=== PATIENT | female | born 1995 | race Two or more races ===

== ENCOUNTER 2018-02-04 23:37 | Emergency (ER) | payer MEDICAID ==
[~2018-02-04] VITALS: Ht 162.6 cm; Wt 81.6 kg
[2018-02-04] MEDS ORDERED: NKM (23:47)
[2018-02-04 23:50] VITALS: BP 129/75
[2018-02-05] MEDS ORDERED: Tylenol #3 tab (300mg/30mg) PO ONE (00:15)
[2018-02-05] MEDS ORDERED: CYCLOBENZAPRINE10 MG ORAL (02:26)
[2018-02-05] MEDS ORDERED: TYLENOL EXTRA500 MG ORAL (02:26)
[2018-02-05 02:35] VITALS: BP 129/75
--- NOTE | 2018-02-05 02:46 | Emergency Room Report ---
History of Present Illness General Chief Complaint: Multiple Trauma/Fall Source: Patient Present Illness HPI 22-year-old female presents ED for evaluation. Patient states she had a mechanical trip and fall tonight. Complaining of left knee pain and neck pain. Denies LOC. Denies any headache. Denies any other injuries. Pain is throbbing, 8 out of 10, nonradiating. States pain but is able to walk. No other aggravating or relieving factors. Denies any other associated symptoms Allergies: Coded Allergies: No Known Allergies (Unverified , 02/04/18) Patient History Past Medical History: none Past Surgical History: none Pertinent Family History: none Social History: Denies: smoking, alcohol use, drug use Last Menstrual Period: Nov Now: No Immunizations: UTD Reviewed Nursing Documentation: PMH: Agreed, PSxH: Agreed Nursing Documentation-PMH Past Medical History: No Stated History Review of Systems All Other Systems: negative except mentioned in HPI Physical Exam Vital Signs Date Time Temp Pulse Resp B/P (MAP) Pulse Ox O2 Delivery O2 Flow Rate FiO2 02/04/18 23:41 98.9 96 18 129/75 97 Room Air 99.0 Sp02 EP Interpretation: reviewed, normal General Appearance: no apparent distress, alert, GCS 15, non-toxic Head: normocephalic, atraumatic Eyes: bilateral eye normal inspection, bilateral eye PERRL ENT: hearing grossly normal, normal pharynx, no angioedema, normal voice Neck: full range of motion, supple/symm/no masses, tender lateral, tender midline Respiratory: chest non-tender, lungs clear, normal breath sounds, speaking full sentences Cardiovascular #1: regular rate, rhythm, no edema Cardiovascular #2: 2+ carotid (R), 2+ carotid (L), 2+ radial (R), 2+ radial (L) , 2+ dorsalis pedis (R), 2+ dorsalis pedis (L) Gastrointestinal: normal bowel sounds, non tender, soft, non-distended, no guarding, no rebound Rectal: deferred Genitourinary: normal inspection, no CVA tenderness Musculoskeletal: back normal, gait/station normal, normal range of motion, tender - Left knee Neurologic: alert, oriented x3, responsive, motor strength/tone normal, sensory intact, speech normal Psychiatric: judgement/insight normal, memory normal, mood/affect normal, no suicidal/homicidal ideation Reflexes: 3+ bicep (R), 3+ bicep (L), 3+ tricep (R), 3+ tricep (L), 3+ knee (R) , 3+ knee (L) Skin: normal color, no rash, warm/dry, well hydrated Lymphatic: no adenopathy Procedures Splinting Splinting : Consent: Verbal Pre-Made Type: MARISELA wrap - Left knee Pre-Proc Neuro Vasc Exam: normal Post-Proc Neuro Vasc Exam: normal Patient Tolerated: Well Complications: None Medical Decision Making Diagnostic Impression: Primary Impression: Knee contusion Qualified Codes: S80.02XA - Contusion of left knee, initial encounter Additional Impression: Neck pain ER Course Hospital Course 22-year-old F presents to ED complaining of L knee pain, neck pain s/p fall Differential diagnoses include: Fracture, dislocation, sprain, contusion Clinical course Patient placed on stretcher. After initial history and physical, I ordered pain medications and Xrays of L knee, CT Cspine CT C-spine unremarkable Xrays prelim read shows no acute fracture/dislocation. placed in marisela wrap, given crutches Diagnosis - neck pain, knee contusion Stable and discharged to home with prescription for Flexeril, Tylenol. apply ice, keep elevated. weight bear as tolerated. Followup with PMD. Return to ED if symptoms recur or worsen Other X-Ray Diagnostic Results Other X-Ray Diagnostic Results : X-Ray ordered: Left knee # of Views/Limited Vs Complete: 3 View Indication: Pain EP Interpretation: Yes Interpretation: no dislocation, no soft tissue swelling, no fractures Impression: No acute disease Electronically Signed by: Electronically signed by Giancarlo Whitley MD CT/MRI/US Diagnostic Results CT/MRI/US Diagnostic Results : Imaging Test Ordered: CT C-spine Impression no acute process Last Vital Signs Date Time Temp Pulse Resp B/P (MAP) Pulse Ox O2 Delivery O2 Flow Rate FiO2 02/04/18 23:50 99.0 18 129/75 97 Room Air 99.0 02/04/18 23:41 96 Status: improved Disposition: HOME, SELF-CARE Condition: Stable Scripts Cyclobenzaprine Hcl* (FLEXERIL*) 10 Mg Tablet 10 MG ORAL TID Y for Muscle Spasm, #20 TAB Prov: GIANCARLO WHITLEY M.D. 02/05/18 Acetaminophen* (TYLENOL EXTRA STRENGTH*) 500 Mg Tablet 500 MG ORAL Q8H Y for Prn Headache/Temp > 101, #30 TAB 0 Refills Prov: GIANCARLO WHITLEY M.D. 02/05/18 Patient Instructions: Knee Pain, [id number] GIANCARLO WHITLEY M.D. Feb 05, 2018 02:46
--- NOTE | 2018-02-05 08:50 | Diagnostic Imaging Report ---
Indication: Left knee pain Technique: Left knee 3 views Comparison: None Findings: There is no acute fracture or dislocation. No joint effusion is seen. Bone mineralization is normal. Impression: No acute osseous abnormality.
--- NOTE | 2018-02-05 08:52 | Diagnostic Imaging Report ---
Indication: Neck pain Technique: CT cervical spine was performed utilizing automated exposure control without intravenous contrast material. Axial and coronal images were generated. CT dose: Total DLP 443 mGycm; CTDI vol 19.7 mGy Comparison: None Findings: There is no acute fracture. There is cervical straightening. Prevertebral soft tissues are within normal limits. Visualized lung apices are clear. Impression: No acute fracture. Cervical straightening which may be related to positioning, muscle spasm or chronic. Clinical correlation recommended. The CT scanner at [facility] is accredited by the [employer] and the scans are performed using protocols designed to limit radiation exposure to as low as reasonably achievable to attain images of sufficient resolution adequate for diagnostic evaluation.
== END 2018-02-05 02:35 | disposition home or self-care (01) ==
LOC: EMR 23:55
DX: S80.02XA Contusion of left knee, initial encounter (principal); M54.2 Cervicalgia; W01.0XXA Fall on same level from slipping, tripping and stumbling without subsequent striking against object, initial encounter; Y92.9 Unspecified place or not applicable
CPT/HCPCS: 72125; 99284

== ENCOUNTER 2018-11-27 17:07 | Emergency (ER) | payer MEDICAID ==
[~2018-11-27] VITALS: Ht 165.1 cm; Wt 78.9 kg
[~2018-11-27 17:07] MED LIST: CYCLOBENZAPRINE10 MG ORAL; NKM; TYLENOL EXTRA500 MG ORAL
--- NOTE | 2018-11-27 17:43 | NUR ---
ED Nurse Note: pt came in from home, pt c/o right pinky pain due to tripping on sidewalk and landing on it 3 days ago. pt denies falling on her head and taking medication to alleviate pain. pt calm, vss.
[2018-11-27 17:47] VITALS: BP 126/85
[2018-11-27] MEDS ORDERED: TYLENOL EXTRA500 MG ORAL (18:26)
[2018-11-27 18:32] VITALS: BP 126/85
--- NOTE | 2018-11-27 18:33 | NUR ---
ED Nurse Note: pt dc per ED order, dc and prescription education provided. pt verbalized underestanding, id band removed, vss, pt left with all belongings, pt instructed to follow with pmd if symptoms reoccur
--- NOTE | 2018-11-27 18:45 | Emergency Room Report ---
History of Present Illness General Chief Complaint: Pain Source: Patient Present Illness HPI 23-year-old female presents ED complaining of right pinky pain. States that 3 days ago she tripped and fell while running and landed on her right hand. Notes persistent pain and swelling to the right fifth finger. Throbbing, 2/10, nonradiating. Denies any other injuries. No other aggravating relieving factors. Denies any other associated symptoms Allergies: Coded Allergies: No Known Allergies (Unverified , 02/04/18) Patient History Past Medical History: none Past Surgical History: none Pertinent Family History: none Social History: Denies: smoking, alcohol use, drug use Last Menstrual Period: 11/04/2018 Now: No : 0 Para: 0 Immunizations: UTD Reviewed Nursing Documentation: PMH: Agreed; PSxH: Agreed Nursing Documentation-PMH Past Medical History: No Stated History Review of Systems All Other Systems: negative except mentioned in HPI Physical Exam Vital Signs Date Time Temp Pulse Resp B/P (MAP) Pulse Ox O2 Delivery O2 Flow Rate FiO2 11/27/18 17:30 98.4 89 18 126/85 97 Room Air Sp02 EP Interpretation: reviewed, normal General Appearance: no apparent distress, alert, GCS 15, non-toxic Head: normocephalic Eyes: bilateral eye normal inspection, bilateral eye PERRL ENT: normal ENT inspection Neck: normal inspection Respiratory: normal inspection Cardiovascular #1: normal inspection Gastrointestinal: normal inspection Rectal: deferred Genitourinary: no CVA tenderness Musculoskeletal: tender - R pink finger Neurologic: alert, oriented x3, responsive, motor strength/tone normal, sensory intact, speech normal Psychiatric: normal inspection Skin: normal inspection Lymphatic: normal inspection Procedures Splinting Splinting : Consent: Verbal Pre-Made Type: finger splint Pre-Proc Neuro Vasc Exam: normal Post-Proc Neuro Vasc Exam: normal Patient Tolerated: Well Complications: None Medical Decision Making Diagnostic Impression: Primary Impression: Finger fracture Qualified Codes: S62.666A - Nondisplaced fracture of distal phalanx of right little finger, initial encounter for closed fracture ER Course Hospital Course 23-year-old F presents to ED complaining of R finger pain s/p trip and fall Differential diagnoses include: Fracture, dislocation, sprain, contusion Clinical course Patient placed on stretcher. After initial history and physical, I ordered xrays of R hand. patient declined pain meds xray shows fx of middle phalanx at DIP joint. placed in finger splint discussed findings with patient. requires followup with hand/ortho. we will provide referrals Diagnosis - finger fracture Stable and discharged to home with prescription for tylenol. apply ice, keep elevated. weight bear as tolerated. Followup with PMD. Return to ED if symptoms recur or worsen Last Vital Signs Date Time Temp Pulse Resp B/P (MAP) Pulse Ox O2 Delivery O2 Flow Rate FiO2 11/27/18 18:32 98.4 89 18 126/85 97 Room Air Status: improved Disposition: HOME, SELF-CARE Condition: Stable Scripts Acetaminophen* (TYLENOL EXTRA STRENGTH*) 500 Mg Tablet 500 MG ORAL Q8H PRN for Prn Headache/Temp > 101, #30 TAB 0 Refills Prov: Giancarlo Whitley MD 11/27/18 Referrals: [facility]atan Brand [facility]. [facility] Patient Instructions: Finger Fracture, [id number] Giancarlo Whitley MD Nov 27, 2018 18:45
--- NOTE | 2018-11-28 10:51 | Diagnostic Imaging Report ---
Indication: Right hand pain Technique: 3 views right hand Comparison: none Findings: There is a fracture of the posterior corner of the base of the fifth distal phalanx. No other acute fractures. No dislocations. The joint spaces are preserved. There is ulnar minus variance incidentally noted. Impression: Positive for fifth distal phalangeal fracture This agrees with the findings described by the emergency room physician in the electronic medical record
== END 2018-11-27 18:32 | disposition home or self-care (01) ==
LOC: EMR 18:01
DX: S62.636A Displaced fracture of distal phalanx of right little finger, initial encounter for closed fracture (principal); W01.0XXA Fall on same level from slipping, tripping and stumbling without subsequent striking against object, initial encounter; Y93.02 Activity, running; Y92.480 Sidewalk as the place of occurrence of the external cause
CPT/HCPCS: 29130; 99283